=== PATIENT | male | born 1955 | race Caucasian/White ===

== ENCOUNTER 2019-07-29 10:07 | Emergency (ER) | payer MEDICARE, MEDICAID | END 2019-07-29 10:53 | disposition home or self-care (01) | LOC: ERS 10:07 | DX: L98.9 Disorder of the skin and subcutaneous tissue, unspecified (principal) | CPT/HCPCS: 99281 ==

== ENCOUNTER 2019-09-03 10:09 | Outpatient (CLI) | payer MEDICARE, MEDICAID ==
--- NOTE | 2019-09-03 11:38 | CT ---
EXAM: CT Pulmonary Lung Scan PROVIDED CLINICAL HISTORY: Nicotine dependence productive cough. COMPARISON: None FINDINGS: There are linear and parenchymal densities in the right lung apex with associated calcifications like ly due to partially calcified pleural and parenchymal scarring. There are several small calcifications seen in the right upper lobe which are likely related to prior granulomatous disease w ith a larger calcification also seen in the right upper lobe measuring 12 mm which is also likely attributable to prior granulomatous disease. No discrete noncalcified pulmonary nodule is seen. No pleural effusion is identified. Mild emphysematous changes are seen throughout the lungs. Vascular calcifications are seen in the thoracic aorta and in the coronary arteries. Lack of IV contrast limits evaluation of vascular structures and mediastinum, but no definite enlarge d mediastinal lymph nodes are appreciated. Small hiatal hernia is identified. Visualized upper abdomen demonstrates a grossly normal nonenhanced CT appearance. Multilevel degenerative changes are seen throughout the thoracic spine. Limbus vertebra is seen invol ving the L2 vertebral body. Anterolisthesis of C7 on T1 is seen with severe narrowing of the intervertebral disc space with scler osis and irregularity of the endplates at this level. Mild irregularity in the adjacent rib endings at the level of the T1 vertebral body. These findings are favored to be related to severe degenerativ e changes at this level as there are typical appearing endplate degenerative changes also seen at the C6-7 level. However, this is incompletely evaluated or assessed on this exam. IMPRESSION: 1. Lung RADS category S - findings favored to most likely be attributable to severe endplate degenera tive changes at the C7-T1 level with anterolisthesis of C7 on T1. However, this level is incompletely assessed, and MRI cervical spine to extend to the level of the T2 vertebral body is gosia mmended for further evaluation. 2. Lung RADS category 2, benign appearance. Continued annual screening was low-dose CT scan thorax in 12 months is recommended. 3. COPD and chronic lung changes.
== END 2019-09-03 10:10 | disposition home or self-care (01) ==
LOC: CT 10:09
PROVIDERS: ATTEND Student in an Organized Health Care Education/Training Program
DX: Z12.2 Encounter for screening for malignant neoplasm of respiratory organs (principal); F17.210 Nicotine dependence, cigarettes, uncomplicated; J44.9 Chronic obstructive pulmonary disease, unspecified
CPT/HCPCS: G0297

== ENCOUNTER 2020-05-11 14:06 | Emergency (ER) | payer MEDICARE, MEDICAID ==
[~2020-05-11 14:06] MED LIST: Iopamidol-370 76% 500 ML 1 ML ONE
[2020-05-11] MEDS ORDERED: Ketorolac Tromethamine 30 MG/ML VIAL ONE (14:44)
[2020-05-11 15:05] LABS: #Basophils 0.1 thou/uL (0.0-0.2); #Eosinphils 0.4 thou/uL (0.0-0.7); #Lymphocytes 2.8 thou/uL (1.20-3.40); #Monocytes 1.1 thou/uL (0.11-0.59); #Neutrophils 8.9 thou/uL (1.40-6.50); %Basophils 0.7 % (0.0-1.0); %Eosinophils 2.8 % (0.0-10.0); %Lymphocytes 21.1 % (21.0-51.0); %Monocytes 8.1 % (0.0-10.0); %Neutrophils 67.4 % (42.0-75.0); Hemoglobin 15.7 g/dL (14.0-18.0); Mean Corpuscular HGB CONC 34.6 g/dL (32.0-36.0); Mean Corpuscular Hemoglobin 30.9 pg (27.0-31.0); Mean Corpuscular Volume 89.3 fL (78.0-98.0); Mean Platelet Volume 6.5 fL (7.4-10.4); Platelet Count 330 thou/uL (130-400); Red Blood Cell (RBC) Count 5.07 mill/uL (4.70-6.10); White Blood Cell (WBC) Count 13.2 thou/uL (4.8-10.8)
--- NOTE | 2020-05-11 15:08 | CT ---
CT Brain WO Con: 05/11/2020 2:58 PM CLINICAL HISTORY: Stroke alert; last seen normal at 03 100 a.m. on 05/11/2020; right arm weakness, rig ht arm and leg pain. IMAGING TECHNIQUE: Multiple CT images were obtained of the brain without IV contrast. COMPARISON: None. FINDINGS: BRAIN: Evidence of acute infarct: None. Evidence of chronic ischemic change:There is a remote infarct involving the posterior and posterior l ower aspect of the right cerebellum. Evidence of intracranial hemorrhage: None. Evidence of brain volume loss:There is mild generalized cerebral and cerebellar atrophy. Evidence of midline shift: Third ventricle and septum pellucidum are midline. Ventricles: Normal. No hydrocephalus. SKULL: Intact. VISUALIZED PARANASAL SINUSES: There is mucosal thickening with air-fluid levels within the maxillary sinuses, ethmoid air cells and sphenoid sinus suspicious for sinusitis. Mild mucosal thickening is seen involving the frontal sinuses. MASTOID AIR CELLS: There is a partial effusion of the right mastoid air cells. There is partial fusi on of the left mastoid air cells. EXTRACRANIAL SOFT TISSUES: Normal. IMPRESSION: 1. No acute intracranial abnormality. 2. Remote right cerebellar hemisphere infarct. 3. Acute sinusitis of the maxillary, ethmoid and sphenoid sinuses. 4. Partial effusion of the right and left mastoid air cells. 5. Findings called to JAVIER Hodges at 3:04 PM on May 11, 2020.
[2020-05-11 15:12] LABS: PTT 33.2 sec (22.9-36.1); Prothrombin Time 12.8 sec (12.0-14.7)
[2020-05-11 15:14] LABS: INR-International Normal Ratio 0.9
--- NOTE | 2020-05-11 15:19 | CT ---
CT Cervical Spine WO Con Indication: History of fall with right arm numbness and pain COMPARISON: None. FINDINGS: Spinal alignment: There is rightward curvature of the cervical spine likely related to positioning. T here is anterior translation of C7 on T1 which is likely degenerative. Craniocervical junction: Within normal limits. Fracture: None. Vertebral body heights: Maintained. Prevertebral soft tissues:Normal appearing. Cervical spine degenerative change: There is advanced multilevel disc degenerative facet osteoarthrit ic change. There is severe disc degenerative disease at C6-7 and C7-T1. There is ankylosis of the C5-C6 intervertebral level and facet complexes. There is ankylosis of the C2-3 facet complexes. Lung apices: There is pleural parenchymal scarring involving both lung apices with paraseptal emphyse ma. IMPRESSION: No acute osseous abnormality. Chronic osseous changes as above.
[2020-05-11 15:25] LABS: ALT (SGPT) 19 U/L (8-55); AST (SGOT) 17 U/L (5-34); Albumin 4.2 g/dL (3.4-4.8); Alkaline Phosphatase 98 U/L (40-110); Anion Gap 15 mmol/L (10-20); BUN (Urea Nitrogen) 7 mg/dL (8.4-25.7); Bilirubin, Total 0.4 mg/dL (0.2-1.2); CK (CPK) 192 U/L (30-200); Calc. Creatinine Clearance 0 mL/min (70-130); Calcium 9.2 mg/dL (7.8-10.44); Carbon Dioxide 26 mmol/L (23-31); Chloride 108 mmol/L (98-107); Estimated GFR-MDRD Greater than 90; Globulin 2.9 g/dL (2.4-3.5); Glucose 95 mg/dL (80-115); Potassium 4.3 mmol/L (3.5-5.1); Protein, Total 7.1 g/dL (5.8-8.1); Sodium 145 mmol/L (136-145)
[2020-05-11] MEDS ORDERED: traMADol HCl 50 MG TAB ONE (16:04)
--- NOTE | 2020-05-11 16:07 | CT ---
CTA of the head with IV contrast and 3-D reformatted imaging. CTA of the neck with IV contrast and 3-D reformatted imaging. INDICATION: 65-year-old male with right arm weakness and right arm and right leg pain COMPARISON: Noncontrast CT the brain dated 05/11/2020 at 3:00 PM FINDINGS: CTA OF THE HEAD WITH CONTRAST: CTA OF THE BRAIN: Right ICA: Patent. Right MCA: Patent. Right KIERRA: Patent. ACOM: Patent. Left ICA: Patent. Left MCA: Patent. Left KIERRA: Patent. PCOMs: Patent. Vertebral arteries: Patent. Basilar Artery: Patent. basket sorter: Patent. Incidentals: No abnormal enhancement. Remote right cerebellar metastases. Infarct CTA OF THE NECK WITH CONTRAST: Right CCA: Patent. Right ICA: Patent. Right Subclavian: Patent. Right Vertebral Artery: Patent. Left CCA: Patent. Left ICA: Patent. Left Subclavian: Patent. Left Vertebral Artery: Mild narrowing involving the origin of the cervical left vertebral artery. Re maining course patent. Aerodigestive tract: Clear. Parotids/Submandibular/Thyroid glands: Normal. Lymph nodes: No pathologically enlarged lymph nodes. Lung Apices: Pleural parenchymal scarring and severe emphysema involving both lung apices. There is calcified granuloma in the right upper lobe. Bones: There is scattered degenerative and osteoarthritic change present. Incidentals: None. IMPRESSION: 1. No hemodynamically significant stenosis, occlusion or aneurysmal formation. 2. Mild narrowing involving the origin of the left vertebral artery.
--- NOTE | 2020-05-11 16:17 | RAD ---
RIGHT SHOULDER 3 VIEWS: Date: 05/11/2020 HISTORY: Right shoulder pain. FINDINGS: There is marked arthrosis of the AC joint and also degenerative changes of the glenohumeral joint spa ce. No fracture. IMPRESSION: Moderate arthritic changes of the shoulder. POS: JOSE
[2020-05-11] MEDS ORDERED: Dexamethasone 4 MG TAB ONE (17:32)
--- NOTE | 2020-05-12 14:12 | CT ---
CTA of the head with IV contrast and 3-D reformatted imaging. CTA of the neck with IV contrast and 3-D reformatted imaging. INDICATION: 65-year-old male with right arm weakness and right arm and right leg pain COMPARISON: Noncontrast CT the brain dated 05/11/2020 at 3:00 PM FINDINGS: CTA OF THE HEAD WITH CONTRAST: CTA OF THE BRAIN: Right ICA: Patent. Right MCA: Patent. Right KIERRA: Patent. ACOM: Patent. Left ICA: Patent. Left MCA: Patent. Left KIERRA: Patent. PCOMs: Patent. Vertebral arteries: Patent. Basilar Artery: Patent. performance analyst: Patent. Incidentals: No abnormal enhancement. Remote right cerebellar metastases. Infarct CTA OF THE NECK WITH CONTRAST: Right CCA: Patent. Right ICA: Patent. Right Subclavian: Patent. Right Vertebral Artery: Patent. Left CCA: Patent. Left ICA: Patent. Left Subclavian: Patent. Left Vertebral Artery: Mild narrowing involving the origin of the cervical left vertebral artery. Re maining course patent. Aerodigestive tract: Clear. Parotids/Submandibular/Thyroid glands: Normal. Lymph nodes: No pathologically enlarged lymph nodes. Lung Apices: Pleural parenchymal scarring and severe emphysema involving both lung apices. There is calcified granuloma in the right upper lobe. Bones: There is scattered degenerative and osteoarthritic change present. Incidentals: None. IMPRESSION: 1. No hemodynamically significant stenosis, occlusion or aneurysmal formation. 2. Mild narrowing involving the origin of the left vertebral artery. Transcribed Date/Time: 05/12/2020 2:12 PM
--- NOTE | 2020-05-15 14:24 | EKG ---
Test Reason : Blood Pressure : / mmHG Vent. Rate : 083 BPM Atrial Rate : 083 BPM P-R Int : 170 ms QRS Dur : 078 ms QT Int : 374 ms P-R-T Axes : 066 044 052 degrees QTc Int : 439 ms Normal sinus rhythm Possible Left atrial enlargement Borderline ECG Confirmed by AMAYA KENDRICK DO ([id number]), editor farm journal CARLOS RASHEED ([id number]) on 05/15/2020 2:23:52 PM Referred By: Confirmed By:AMAYA KENDRICK DO
== END 2020-05-11 18:11 | disposition home or self-care (01) ==
LOC: ERS 14:06
DX: M54.10 Radiculopathy, site unspecified (principal)
CPT/HCPCS: 70450; 70496; 70498; 72125; 80053; 82550; 84484; 85025; 85610; 85730; 93005; 96372; J1885; J8540; Q9967

== ENCOUNTER 2022-09-21 16:44 | Inpatient (IN) | payer MEDICARE, MEDICAID ==
[2022-09-21 17:43] LABS: #Basophils 0.1 thou/uL (0.0-0.2); #Eosinphils 0.3 thou/uL (0.0-0.7); #Lymphocytes 2.7 thou/uL (1.20-3.40); #Monocytes 1.3 thou/uL (0.11-0.59); #Neutrophils 11.3 thou/uL (1.40-6.50); %Basophils 0.8 % (0.0-1.0); %Eosinophils 2.1 % (0.0-10.0); %Lymphocytes 16.9 % (21.0-51.0); %Monocytes 7.9 % (0.0-10.0); %Neutrophils 72.3 % (42.0-75.0); Hemoglobin 14.2 g/dL (14.0-18.0); Mean Corpuscular HGB CONC 33.1 g/dL (32.0-36.0); Mean Corpuscular Hemoglobin 31.6 pg (27.0-31.0); Mean Corpuscular Volume 95.6 fl (78.0-98.0); Mean Platelet Volume 6.6 fL (7.4-10.4); Platelet Count 364 10x3/uL (130-400); RBC Distribution Width 14.6 % (11.5-14.5); Red Blood Cell (RBC) Count 4.49 mill/uL (4.70-6.10); White Blood Cell (WBC) Count 15.7 10x3/uL (4.8-10.8)
[2022-09-21 18:04] LABS: ALT (SGPT) 8 U/L (8-55); AST (SGOT) 12 U/L (5-34); Albumin 3.6 g/dL (3.4-4.8); Alkaline Phosphatase 110 U/L (40-110); Anion Gap 13 mmol/L (10-20); BUN (Urea Nitrogen) 9 mg/dL (8.4-25.7); Bilirubin, Total 0.5 mg/dL (0.2-1.2); Calc. Creatinine Clearance 0 mL/min (70-130); Calcium 8.5 mg/dL (7.8-10.44); Carbon Dioxide 22 mmol/L (23-31); Chloride 100 mmol/L (98-107); Estimated GFR 97; Globulin 2.8 g/dL (2.4-3.5); Glucose 87 mg/dL (80-115); Lipase 126 U/L (8-78); Potassium 4.3 mmol/L (3.5-5.1); Protein, Total 6.4 g/dL (5.8-8.1); Sodium 131 mmol/L (136-145)
[2022-09-21] MEDS ORDERED: Ondansetron PF 4 MG/2 ML Vial ONE (18:29)
[2022-09-21] MEDS ORDERED: Morphine 4 MG/ML VIAL ONE (18:29)
[2022-09-21 19:01] LABS: Bilirubin Negative (Negative); Blood, Urine Negative (Negative); Clarity Clear (Clear); Glucose, Urine (Dipstick) Normal (Negative); Ketone, Urine Negative (Negative); Leukocyte Negative Leu/uL (Negative); Nitrite Negative (Negative); Protein, Urine (Dipstick) Negative (Neg-Trace); Specific Gravity, Urine 1.017 (1.002-1.036); Urobilinogen Normal mg/dL (Less than 2)
[2022-09-21] MEDS ORDERED: Piperacillin/Tazobactam 3.375 GM VIAL ONE (20:35)
[2022-09-21] MEDS ORDERED: Pantoprazole 40 MG VIAL ONE (20:35)
[2022-09-21] MEDS ORDERED: Acetaminophen 325 MG TAB PO PRN (20:45)
[2022-09-21] MEDS ORDERED: Ondansetron PF 4 MG/2 ML Vial IVP PRN (20:45)
[2022-09-21] MEDS ORDERED: Ondansetron ODT 4 MG TAB SL PRN (20:45)
[2022-09-21] MEDS ORDERED: Sodium Chloride 0.9% 1,000 ML IV SCH (20:45)
[2022-09-21] MEDS ORDERED: Nicotine 21 MG PATCH TOP SCH (21:30)
[2022-09-22] MEDS: Morphine 4 MG/ML VIAL SLOW IVP PRN ×4 (00:17→16:17)
[2022-09-22] MEDS: Sodium Chloride 0.9% 1,000 ML IV SCH ×2 (01:13→09:46)
[2022-09-22 05:42] LABS: #Basophils 0.1 thou/uL (0.0-0.2); #Eosinphils 0.5 thou/uL (0.0-0.7); #Monocytes 1.1 thou/uL (0.11-0.59); #Neutrophils 6.5 thou/uL (1.40-6.50); %Basophils 0.8 % (0.0-1.0); %Eosinophils 4.2 % (0.0-10.0); %Lymphocytes 27.2 % (21.0-51.0); %Monocytes 9.5 % (0.0-10.0); %Neutrophils 58.3 % (42.0-75.0); Hemoglobin 13.5 g/dL (14.0-18.0); Mean Corpuscular HGB CONC 34.3 g/dL (32.0-36.0); Mean Corpuscular Hemoglobin 32.8 pg (27.0-31.0); Mean Corpuscular Volume 95.6 fl (78.0-98.0); Mean Platelet Volume 7.1 fL (7.4-10.4); Platelet Count 324 10x3/uL (130-400); RBC Distribution Width 14.6 % (11.5-14.5); Red Blood Cell (RBC) Count 4.11 mill/uL (4.70-6.10); White Blood Cell (WBC) Count 11.1 10x3/uL (4.8-10.8)
[2022-09-22 06:02] LABS: ALT (SGPT) 8 U/L (8-55); AST (SGOT) 10 U/L (5-34); Albumin 3.2 g/dL (3.4-4.8); Alkaline Phosphatase 101 U/L (40-110); Anion Gap 15 mmol/L (10-20); BUN (Urea Nitrogen) 6 mg/dL (8.4-25.7); Bilirubin, Total 0.5 mg/dL (0.2-1.2); Calc. Creatinine Clearance 104 mL/min (70-130); Calcium 8.1 mg/dL (7.8-10.44); Carbon Dioxide 16 mmol/L (23-31); Chloride 108 mmol/L (98-107); Estimated GFR 104; Globulin 2.4 g/dL (2.4-3.5); Glucose 68 mg/dL (80-115); Lipase 70 U/L (8-78); Potassium 3.8 mmol/L (3.5-5.1); Protein, Total 5.6 g/dL (5.8-8.1); Sodium 135 mmol/L (136-145)
[2022-09-22] MEDS ORDERED: Sucralfate 1 GM TAB PO SCH (07:30)
[2022-09-22] MEDS: Sucralfate 1 GM TAB PO SCH ×3 (09:42→16:15)
[2022-09-22] MEDS: FLUoxetine HCl 20 MG CAP PO SCH (09:42)
[2022-09-22] MEDS: Pantoprazole 40 MG VIAL IVP SCH ×2 (09:43→20:38)
[2022-09-22] MEDS: traMADol HCl 50 MG TAB PO PRN ×2 (09:43→20:37)
[2022-09-22] MEDS: OLANZapine 2.5 MG TAB PO SCH (09:43)
[2022-09-22] MEDS ORDERED: Electrolyte Replacement Protocol 1 EACH FS SCH (15:30)
[2022-09-22] MEDS ORDERED: Electrolyte Replacement Protocol FS PRN (15:45)
[2022-09-22] MEDS: D5 LR w/20 mEq KCL 1,000 ML IV SCH (20:37)
[2022-09-22] MEDS: traZODone HCl 50 MG TAB PO SCH (20:38)
[2022-09-22 23:49] LABS: Campy jejuni + coli by PCR Negative (Negative); STEC Shiga Toxin 1+2 Negative (Negative); Salmonella spp. by PCR Negative (Negative); Shigella spp + EIEC by PCR Negative (Negative)
[2022-09-23] MEDS: Morphine 4 MG/ML VIAL SLOW IVP PRN ×5 (00:20→20:23)
[2022-09-23] MEDS ORDERED: Piperacillin/Tazobactam 3.375 GM in Sodium Chloride 0.9% 100 ML IVPB SCH (01:00)
[2022-09-23] MEDS: traMADol HCl 50 MG TAB PO PRN (04:00)
[2022-09-23] MEDS: D5 LR w/20 mEq KCL 1,000 ML IV SCH ×2 (05:22→16:11)
[2022-09-23 06:14] LABS: #Eosinphils 0.4 thou/uL (0.0-0.7); #Lymphocytes 2.5 thou/uL (1.20-3.40); #Monocytes 1.3 thou/uL (0.11-0.59); #Neutrophils 6.6 thou/uL (1.40-6.50); %Basophils 0.4 % (0.0-1.0); %Lymphocytes 22.8 % (21.0-51.0); %Monocytes 11.9 % (0.0-10.0); %Neutrophils 60.9 % (42.0-75.0); Hemoglobin 12.3 g/dL (14.0-18.0); Mean Corpuscular HGB CONC 33.4 g/dL (32.0-36.0); Mean Corpuscular Hemoglobin 32.2 pg (27.0-31.0); Mean Corpuscular Volume 96.3 fl (78.0-98.0); Mean Platelet Volume 6.8 fL (7.4-10.4); Platelet Count 298 10x3/uL (130-400); RBC Distribution Width 14.4 % (11.5-14.5); Red Blood Cell (RBC) Count 3.84 mill/uL (4.70-6.10); White Blood Cell (WBC) Count 10.8 10x3/uL (4.8-10.8)
[2022-09-23 06:34] LABS: Phosphorus 2.8 mg/dL (2.3-4.7)
[2022-09-23 06:37] LABS: ALT (SGPT) 7 U/L (8-55); AST (SGOT) 10 U/L (5-34); Albumin 2.8 g/dL (3.4-4.8); Alkaline Phosphatase 90 U/L (40-110); Anion Gap 12 mmol/L (10-20); BUN (Urea Nitrogen) Less than 4 mg/dL (8.4-25.7); Bilirubin, Total 0.5 mg/dL (0.2-1.2); Calc. Creatinine Clearance 111 mL/min (70-130); Calcium 8.1 mg/dL (7.8-10.44); Carbon Dioxide 20 mmol/L (23-31); Chloride 107 mmol/L (98-107); Estimated GFR 106; Globulin 1.9 g/dL (2.4-3.5); Glucose 91 mg/dL (80-115); Magnesium 1.5 mg/dL (1.6-2.6); Protein, Total 4.7 g/dL (5.8-8.1); Sodium 135 mmol/L (136-145)
[2022-09-23] MEDS ORDERED: Magnesium 2 GM/50 ML(in water) 2 GM in Premix Bag 1 BAG IVPB SCH (08:00)
[2022-09-23] MEDS: Pantoprazole 40 MG VIAL IVP SCH ×2 (08:32→20:25)
[2022-09-23] MEDS: FLUoxetine HCl 20 MG CAP PO SCH (08:32)
[2022-09-23] MEDS: OLANZapine 2.5 MG TAB PO SCH (08:32)
[2022-09-23] MEDS ORDERED: Nicotine 7 MG PATCH TD SCH (09:45)
[2022-09-23] MEDS ORDERED: MD-Gastroview 120 ML BOT ONE (13:01)
[2022-09-23] MEDS: traZODone HCl 50 MG TAB PO SCH (20:26)
[2022-09-24] MEDS: Morphine 4 MG/ML VIAL SLOW IVP PRN ×4 (00:24→20:01)
[2022-09-24] MEDS: D5 LR w/20 mEq KCL 1,000 ML IV SCH ×2 (00:24→11:48)
[2022-09-24 05:12] LABS: #Basophils 0.1 thou/uL (0.0-0.2); #Eosinphils 0.3 thou/uL (0.0-0.7); #Lymphocytes 2.8 thou/uL (1.20-3.40); #Monocytes 1.4 thou/uL (0.11-0.59); #Neutrophils 6.4 thou/uL (1.40-6.50); %Basophils 0.7 % (0.0-1.0); %Eosinophils 2.3 % (0.0-10.0); %Monocytes 12.7 % (0.0-10.0); %Neutrophils 58.3 % (42.0-75.0); Hemoglobin 11.9 g/dL (14.0-18.0); Mean Corpuscular Hemoglobin 31.7 pg (27.0-31.0); Mean Platelet Volume 6.8 fL (7.4-10.4); Platelet Count 293 10x3/uL (130-400); RBC Distribution Width 14.3 % (11.5-14.5); Red Blood Cell (RBC) Count 3.75 mill/uL (4.70-6.10); White Blood Cell (WBC) Count 10.9 10x3/uL (4.8-10.8)
[2022-09-24 05:37] LABS: ALT (SGPT) Less than 7 U/L (8-55); AST (SGOT) 9 U/L (5-34); Albumin 2.6 g/dL (3.4-4.8); Alkaline Phosphatase 82 U/L (40-110); Anion Gap 8 mmol/L (10-20); BUN (Urea Nitrogen) Less than 4 mg/dL (8.4-25.7); Bilirubin, Total 0.4 mg/dL (0.2-1.2); Calc. Creatinine Clearance 115 mL/min (70-130); Carbon Dioxide 25 mmol/L (23-31); Chloride 106 mmol/L (98-107); Estimated GFR 107; Globulin 2.2 g/dL (2.4-3.5); Glucose 106 mg/dL (80-115); Potassium 3.9 mmol/L (3.5-5.1); Protein, Total 4.8 g/dL (5.8-8.1); Sodium 135 mmol/L (136-145)
[2022-09-24] MEDS ORDERED: FLU VACC QS2022-23(65YR UP)/PF 240 MCG/0.7 ML SYRINGE IM ONE (09:00)
[2022-09-24] MEDS ORDERED: PROPOFOL 200 MG/20 ML VIAL ONE (10:29)
[2022-09-24] MEDS ORDERED: Promethazine HCl 25 MG/ML VIAL IM PRN (10:46)
[2022-09-24] MEDS ORDERED: Ondansetron HCl/PF 4 MG/2 ML Vial IVP PRN (10:46)
[2022-09-24] MEDS: OLANZapine 2.5 MG TAB PO SCH (11:47)
[2022-09-24] MEDS: FLUoxetine HCl 20 MG CAP PO SCH (11:47)
[2022-09-24] MEDS: Nicotine 7 MG PATCH TD SCH (11:47)
[2022-09-24] MEDS: Pantoprazole 40 MG VIAL IVP SCH ×2 (11:47→20:02)
[2022-09-24] MEDS: traMADol HCl 50 MG TAB PO PRN (17:51)
[2022-09-24] MEDS: traZODone HCl 50 MG TAB PO SCH (20:01)
[2022-09-25] MEDS: traMADol HCl 50 MG TAB PO PRN (01:22)
[2022-09-25] MEDS: Morphine 4 MG/ML VIAL SLOW IVP PRN ×3 (02:20→13:38)
[2022-09-25 06:24] LABS: #Basophils 0.1 thou/uL (0.0-0.2); #Eosinphils 0.5 thou/uL (0.0-0.7); #Lymphocytes 3.1 thou/uL (1.20-3.40); #Monocytes 1.4 thou/uL (0.11-0.59); #Neutrophils 6.1 thou/uL (1.40-6.50); %Basophils 0.8 % (0.0-1.0); %Eosinophils 4.1 % (0.0-10.0); %Monocytes 12.3 % (0.0-10.0); %Neutrophils 54.9 % (42.0-75.0); Hemoglobin 12.2 g/dL (14.0-18.0); Mean Corpuscular HGB CONC 32.5 g/dL (32.0-36.0); Mean Corpuscular Hemoglobin 31.3 pg (27.0-31.0); Mean Corpuscular Volume 96.1 fl (78.0-98.0); Mean Platelet Volume 7.3 fL (7.4-10.4); Platelet Count 311 10x3/uL (130-400); RBC Distribution Width 14.2 % (11.5-14.5); White Blood Cell (WBC) Count 11.1 10x3/uL (4.8-10.8)
[2022-09-25 06:43] LABS: Anion Gap 11 mmol/L (10-20); BUN (Urea Nitrogen) 5 mg/dL (8.4-25.7); Calc. Creatinine Clearance 104 mL/min (70-130); Calcium 8.3 mg/dL (7.8-10.44); Carbon Dioxide 25 mmol/L (23-31); Chloride 102 mmol/L (98-107); Estimated GFR 104; Glucose 106 mg/dL (80-115); Potassium 3.9 mmol/L (3.5-5.1); Sodium 134 mmol/L (136-145)
[2022-09-25] MEDS: Nicotine 7 MG PATCH TD SCH (08:06)
[2022-09-25] MEDS: FLUoxetine HCl 20 MG CAP PO SCH (08:06)
[2022-09-25] MEDS: OLANZapine 2.5 MG TAB PO SCH (08:07)
[2022-09-25] MEDS: Pantoprazole 40 MG VIAL IVP SCH (08:07)
[2022-09-25 13:09] VITALS: BP 132/87; TEMP 98.1
== END 2022-09-25 15:30 | disposition home or self-care (01) | DRG 872 ==
LOC: ERS 16:44 → MSONC 20:29 → OBSVTOIN 09-22 15:19
PROVIDERS: ADMIT Family Medicine; ATTEND Family Medicine
PROC: 3E03329 Introduction of Other Anti-infective into Peripheral Vein, Percutaneous Approach (ICD-10-PCS; 2022-09-22)
PROC: 0DB98ZX Excision of Duodenum, Via Natural or Artificial Opening Endoscopic, Diagnostic (ICD-10-PCS; principal; 2022-09-24)
DX: A41.9 Sepsis, unspecified organism (principal); E87.1 Hypo-osmolality and hyponatremia; K26.9 Duodenal ulcer, unspecified as acute or chronic, without hemorrhage or perforation; K29.80 Duodenitis without bleeding; Z20.822 Contact with and (suspected) exposure to COVID-19; Z23 Encounter for immunization; K21.9 Gastro-esophageal reflux disease without esophagitis; M19.90 Unspecified osteoarthritis, unspecified site; F20.9 Schizophrenia, unspecified; Z96.641 Presence of right artificial hip joint; F17.210 Nicotine dependence, cigarettes, uncomplicated; K44.9 Diaphragmatic hernia without obstruction or gangrene; E86.1 Hypovolemia; E86.0 Dehydration; Z82.49 Family history of ischemic heart disease and other diseases of the circulatory system; Z79.899 Other long term (current) drug therapy; Z98.890 Other specified postprocedural states; Z79.1 Long term (current) use of non-steroidal anti-inflammatories (NSAID); Z71.6 Tobacco abuse counseling
CPT/HCPCS: 36415; 74177; 74246; 80048; 80053; 81003; 83605; 83690; 83735; 84100; 85025; 86850; 86900; 86901; 87040; 87324; 87338; 87449; 87505; 88305; 90471; 90662; 96361; 96365; 96375; 96376; C9113; G0008; G0378; J2270; J2405; J2543; J2704; J3475; J3480; J7050; Q9963; U0003; U0005

== ENCOUNTER 2022-11-05 18:13 | Inpatient (IN) | payer MEDICARE, MEDICAID ==
[2022-11-05 18:45] LABS: #Basophils 0.1 thou/uL (0.0-0.2); #Eosinphils 0.1 thou/uL (0.0-0.7); #Monocytes 1.2 thou/uL (0.11-0.59); #Neutrophils 7.1 thou/uL (1.40-6.50); %Basophils 0.5 % (0.0-1.0); %Eosinophils 0.7 % (0.0-10.0); %Monocytes 11.7 % (0.0-10.0); %Neutrophils 68.1 % (42.0-75.0); Hemoglobin 14.3 g/dL (14.0-18.0); Mean Corpuscular HGB CONC 34.3 g/dL (32.0-36.0); Mean Corpuscular Hemoglobin 32.3 pg (27.0-31.0); Mean Corpuscular Volume 94.1 fl (78.0-98.0); Mean Platelet Volume 6.4 fL (7.4-10.4); Platelet Count 436 10x3/uL (130-400); RBC Distribution Width 14.6 % (11.5-14.5); Red Blood Cell (RBC) Count 4.43 mill/uL (4.70-6.10); White Blood Cell (WBC) Count 10.4 10x3/uL (4.8-10.8)
[2022-11-05 19:07] LABS: ALT (SGPT) 20 U/L (8-55); AST (SGOT) 20 U/L (5-34); Albumin 3.9 g/dL (3.4-4.8); Alkaline Phosphatase 99 U/L (40-110); Anion Gap 15 mmol/L (10-20); BUN (Urea Nitrogen) 11 mg/dL (8.4-25.7); Bilirubin, Total 0.3 mg/dL (0.2-1.2); Calc. Creatinine Clearance 0 mL/min (70-130); Calcium 9.3 mg/dL (7.8-10.44); Carbon Dioxide 24 mmol/L (23-31); Chloride 99 mmol/L (98-107); Estimated GFR 102; Globulin 2.7 g/dL (2.4-3.5); Glucose 111 mg/dL (80-115); Lipase 197 U/L (8-78); Potassium 4.3 mmol/L (3.5-5.1); Protein, Total 6.6 g/dL (5.8-8.1); Sodium 134 mmol/L (136-145)
[2022-11-05] MEDS ORDERED: Ondansetron ODT 4 MG TAB ONE (19:39)
[2022-11-05] MEDS ORDERED: Acetaminophen 500 MG TAB ONE (20:00)
[2022-11-05] MEDS ORDERED: Ondansetron PF 4 MG/2 ML Vial ONE (21:51)
[2022-11-05] MEDS ORDERED: Morphine 4 MG/ML VIAL ONE (21:51)
[2022-11-05] MEDS ORDERED: Pantoprazole 40 MG VIAL ONE (21:51)
[2022-11-05] MEDS ORDERED: Ondansetron ODT 4 MG TAB PO PRN (22:37)
[2022-11-05] MEDS ORDERED: Ondansetron PF 4 MG/2 ML Vial IVP PRN (22:37)
[2022-11-05] MEDS ORDERED: Acetaminophen 650 MG Suppository PR PRN (22:37)
[2022-11-06] MEDS: Sodium Chloride 0.9% 1,000 ML IV SCH ×3 (02:11→18:45)
[2022-11-06] MEDS: Morphine 4 MG/ML VIAL SLOW IVP PRN ×2 (02:11→08:30)
[2022-11-06] MEDS ORDERED: Ondansetron PF 4 MG/2 ML Vial ONE (02:12)
[2022-11-06] MEDS ORDERED: Morphine 4 MG/ML VIAL ONE ×2 (02:12→08:19)
[2022-11-06] MEDS ORDERED: Nicotine 14 MG PATCH ONE (04:11)
[2022-11-06] MEDS: Nicotine 14 MG PATCH TD SCH (04:17)
[2022-11-06 07:38] LABS: Hemoglobin 11.6 g/dL (14.0-18.0); Mean Corpuscular HGB CONC 34.5 g/dL (32.0-36.0); Mean Corpuscular Hemoglobin 32.2 pg (27.0-31.0); Mean Corpuscular Volume 93.3 fl (78.0-98.0); Mean Platelet Volume 6.5 fL (7.4-10.4); Platelet Count 365 10x3/uL (130-400); RBC Distribution Width 14.6 % (11.5-14.5); Red Blood Cell (RBC) Count 3.62 mill/uL (4.70-6.10); White Blood Cell (WBC) Count 7.1 10x3/uL (4.8-10.8)
[2022-11-06 07:48] VITALS: BMI 23.1
[2022-11-06 07:55] LABS: Anion Gap 12 mmol/L (10-20); BUN (Urea Nitrogen) 7 mg/dL (8.4-25.7); Calc. Creatinine Clearance 137 mL/min (70-130); Calcium 8.2 mg/dL (7.8-10.44); Carbon Dioxide 21 mmol/L (23-31); Chloride 107 mmol/L (98-107); Estimated GFR 106; Glucose 90 mg/dL (80-115); Potassium 3.8 mmol/L (3.5-5.1); Sodium 136 mmol/L (136-145)
[2022-11-06] MEDS ORDERED: Pantoprazole 40 MG VIAL ONE (08:19)
[2022-11-06] MEDS: Pantoprazole 40 MG VIAL IVP SCH ×2 (08:29→21:15)
[2022-11-06 08:32] LABS: Band 3 % (5-11); Eosinophils 3 % (0-10); Lymphocytes 25 % (21-51); MDiff Complete? YES; Monocytes 10 % (0-10); Neutrophil 49 % (42-75); Platelet Morphology Comment Appears Adequate; RBC Morphology Normal; Reactive Lymphocytes 9 % (0-10)
[2022-11-06] MEDS: traMADol HCl 50 MG TAB PO PRN ×2 (16:09→22:47)
[2022-11-06 18:28] LABS: Hemoglobin 11.1 g/dL (14.0-18.0)
[2022-11-06] MEDS: Acetaminophen 325 MG TAB PO PRN (21:14)
[2022-11-07] MEDS: Sodium Chloride 0.9% 1,000 ML IV SCH ×2 (02:06→13:47)
[2022-11-07] MEDS: Nicotine 14 MG PATCH TD SCH (04:43)
[2022-11-07 04:52] LABS: #Eosinphils 0.5 thou/uL (0.0-0.7); #Lymphocytes 2.9 thou/uL (1.20-3.40); #Neutrophils 2.2 thou/uL (1.40-6.50); %Basophils 0.5 % (0.0-1.0); %Eosinophils 7.4 % (0.0-10.0); %Lymphocytes 43.5 % (21.0-51.0); %Monocytes 14.7 % (0.0-10.0); %Neutrophils 33.9 % (42.0-75.0); Hemoglobin 11.3 g/dL (14.0-18.0); Mean Corpuscular HGB CONC 33.4 g/dL (32.0-36.0); Mean Corpuscular Hemoglobin 31.3 pg (27.0-31.0); Mean Corpuscular Volume 93.8 fl (78.0-98.0); Mean Platelet Volume 6.5 fL (7.4-10.4); Platelet Count 371 10x3/uL (130-400); RBC Distribution Width 14.7 % (11.5-14.5); White Blood Cell (WBC) Count 6.6 10x3/uL (4.8-10.8)
[2022-11-07 05:08] LABS: Anion Gap 12 mmol/L (10-20); BUN (Urea Nitrogen) 5 mg/dL (8.4-25.7); Calc. Creatinine Clearance 109 mL/min (70-130); Calcium 8.1 mg/dL (7.8-10.44); Carbon Dioxide 22 mmol/L (23-31); Chloride 106 mmol/L (98-107); Estimated GFR 106; Glucose 84 mg/dL (80-115); Potassium 3.8 mmol/L (3.5-5.1); Sodium 136 mmol/L (136-145)
[2022-11-07] MEDS ORDERED: Lidocaine 1% PF 5 ML VIAL ONE (08:38)
[2022-11-07] MEDS ORDERED: PROPOFOL 200 MG/20 ML VIAL ONE (08:38)
[2022-11-07] MEDS ORDERED: Promethazine HCl 25 MG/ML VIAL IM PRN (08:57)
[2022-11-07] MEDS ORDERED: Ondansetron HCl/PF 4 MG/2 ML Vial IVP PRN (08:57)
[2022-11-07] MEDS ORDERED: fentaNYL 50 mcg/mL 1 mL Vial ONE (09:35)
[2022-11-07] MEDS ORDERED: fentaNYL 50 mcg/mL 1 mL Vial SLOW IVP SCH (09:45)
[2022-11-07] MEDS: Pantoprazole 40 MG VIAL IVP SCH ×2 (10:42→20:38)
[2022-11-07] MEDS: traMADol HCl 50 MG TAB PO PRN ×2 (13:47→20:36)
[2022-11-08] MEDS: Sodium Chloride 0.9% 1,000 ML IV SCH ×2 (04:20→13:12)
[2022-11-08] MEDS: Nicotine 14 MG PATCH TD SCH (04:23)
[2022-11-08] MEDS: traMADol HCl 50 MG TAB PO PRN ×2 (04:23→13:13)
[2022-11-08 05:25] LABS: Anion Gap 11 mmol/L (10-20); BUN (Urea Nitrogen) 4 mg/dL (8.4-25.7); Calc. Creatinine Clearance 111 mL/min (70-130); Calcium 8.2 mg/dL (7.8-10.44); Carbon Dioxide 22 mmol/L (23-31); Chloride 106 mmol/L (98-107); Estimated GFR 106; Glucose 86 mg/dL (80-115); Potassium 3.8 mmol/L (3.5-5.1); Sodium 135 mmol/L (136-145)
[2022-11-08 05:28] LABS: Anisocytosis SLIGHT = 6-15 cells (100X) (0-5/hpf); Band 2 % (5-11); Eosinophils 2 % (0-10); Hemoglobin 11.8 g/dL (14.0-18.0); Lymphocytes 22 % (21-51); MDiff Complete? YES; Mean Corpuscular HGB CONC 34.1 g/dL (32.0-36.0); Mean Corpuscular Hemoglobin 31.5 pg (27.0-31.0); Mean Corpuscular Volume 92.4 fl (78.0-98.0); Mean Platelet Volume 6.4 fL (7.4-10.4); Monocytes 4 % (0-10); Neutrophil 69 % (42-75); Platelet Count 381 10x3/uL (130-400); Platelet Morphology Comment Appears Adequate; RBC Distribution Width 14.6 % (11.5-14.5); Reactive Lymphocytes 1 % (0-10); Red Blood Cell (RBC) Count 3.73 mill/uL (4.70-6.10); White Blood Cell (WBC) Count 6.7 10x3/uL (4.8-10.8)
[2022-11-08 08:43] VITALS: TEMP 97.2
[2022-11-08] MEDS: Pantoprazole 40 MG VIAL IVP SCH (08:43)
[2022-11-08 11:48] VITALS: BP 135/85
[2022-11-08] MEDS: Acetaminophen 325 MG TAB PO PRN (12:37)
== END 2022-11-08 14:37 | disposition home or self-care (01) | DRG 393 ==
LOC: ERS 18:13 → ERHOLD 22:17 → 2NO 11-06 14:44
PROVIDERS: ADMIT Student in an Organized Health Care Education/Training Program; ATTEND Internal Medicine
PROC: 0W3P8ZZ Control Bleeding in Gastrointestinal Tract, Via Natural or Artificial Opening Endoscopic (ICD-10-PCS; principal; 2022-11-07)
PROC: 0DB68ZX Excision of Stomach, Via Natural or Artificial Opening Endoscopic, Diagnostic (ICD-10-PCS; 2022-11-07)
DX: K31.7 Polyp of stomach and duodenum (principal); I81 Portal vein thrombosis; E87.1 Hypo-osmolality and hyponatremia; F20.0 Paranoid schizophrenia; K92.2 Gastrointestinal hemorrhage, unspecified; Z79.01 Long term (current) use of anticoagulants; Z87.11 Personal history of peptic ulcer disease; Z79.899 Other long term (current) drug therapy; Z79.52 Long term (current) use of systemic steroids; M06.9 Rheumatoid arthritis, unspecified; F17.210 Nicotine dependence, cigarettes, uncomplicated; K44.9 Diaphragmatic hernia without obstruction or gangrene
CPT/HCPCS: 36415; 71045; 80048; 80053; 83690; 85025; 88305; C9113; J2270; J2405; J2704; J3010; J7050; Q0162

== ENCOUNTER 2024-06-03 11:07 | Outpatient (CLI) | payer MEDICARE | END 2024-06-03 11:08 | disposition home or self-care (01) | LOC: CT 11:07 | PROVIDERS: ATTEND Physician Assistant Medical | DX: R10.84 Generalized abdominal pain (principal); D62 Acute posthemorrhagic anemia; I71.40 Abdominal aortic aneurysm, without rupture, unspecified; M51.34 Other intervertebral disc degeneration, thoracic region; M51.360 Other intervertebral disc degeneration, lumbar region with discogenic back pain only; M48.061 Spinal stenosis, lumbar region without neurogenic claudication; N40.0 Benign prostatic hyperplasia without lower urinary tract symptoms; K44.9 Diaphragmatic hernia without obstruction or gangrene | CPT/HCPCS: 36415; 74177; 82565 ==